=== PATIENT | female | born 2000 | race Hispanic/Latino ===

== ENCOUNTER 2024-04-20 21:10 | Emergency (ER) | payer SELFPAY ==
[2024-04-20 21:42] VITALS: BP 135/95
[2024-04-20 21:45] VITALS: BP 138/99
[2024-04-20] MEDS ORDERED: SODIUM CHLORIDE 0.9% 1,000 ML IV ONE (21:45)
[2024-04-20 22:03] VITALS: BP 146/87
[2024-04-20 22:06] LABS: URINE BILIRUBIN - DIPSTICK Negative (NEGATIVE); URINE BLOOD DIPSTICK Negative (NEGATIVE); URINE COLOR Yellow; URINE GLUCOSE - DIPSTICK Negative (NEGATIVE); URINE KETONE Negative (NEGATIVE); URINE LEUK ESTERASE Negative (NEGATIVE); URINE NITRITE - DIPSTICK Negative (Negative); URINE PROTEIN - DIPSTICK Negative (NEG-TRACE); URINE UROBILINOGEN - DIPSTICK 0.2 E.U./dL (0.2)
[2024-04-20 22:06] LABS: BASO% 0.3 % (0-3); EOS% 1.9 % (0-8); HEMATOCRIT 33.6 % (37.0-47.0); IMMATURE GRANULOCYTES 0.9 % (0.0-5.0); LYMPH% 19.9 % (15-41); MEAN CELL VOLUME 84.2 fL CALC (80.0-100.0); MEAN CORPUSCULAR HGB 27.6 pG CALC (26.0-32.0); MEAN CORPUSCULAR HGB CONC 32.7 g/dL CAL (32.0-36.0); MONO% 9.5 % (2-13); NEUT# 6.91 thou/uL (2.00-7.15); NEUT% 67.5 % (42-76); RED BLOOD COUNT 3.99 mill/uL (4.20-5.60)
[2024-04-20 22:30] VITALS: BP 140/93
[2024-04-20 22:41] LABS: BILIRUBIN, TOTAL 0.3 mg/dL (0.02-1.3); CREATININE 0.7 mg/dL (0.5-1.0); POTASSIUM 4.1 mmol/l (3.5-5.1); TOTAL PROTEIN 7.3 g/dL (6.3-8.2)
[2024-04-20 22:59] VITALS: BP 144/96
[2024-04-20 23:40] VITALS: BP 144/96
== END 2024-04-20 23:40 | DRG 833 ==
LOC: ED 21:10
PROVIDERS: Family Medicine
DX: O26.893 Other specified pregnancy related conditions, third trimester (principal); R10.30 Lower abdominal pain, unspecified; O35.08X0 Maternal care for (suspected) central nervous system malformation or damage in fetus, spina bifida, not applicable or unspecified; Z3A.36 36 weeks gestation of pregnancy